=== PATIENT | female | born 2000 | race Two or more races ===

== ENCOUNTER 2022-10-01 11:46 | Emergency (ER) | payer MEDICAID, OTHER ==
[~2022-10-01] VITALS: Ht 160 cm; Wt 54.3 kg
[2022-10-01 12:55] LABS: Basophils # (auto) 0.1 10 ^3/uL (0-0.2); Basophils % (auto) 0.6 % (0.0-2.0); Eosinophils # (auto) 0.1 10 ^3/uL (0-0.8); Eosinophils % (auto) 0.7 % (0.0-7.0); Hematocrit 43.4 % (36.0-46.0); Hemoglobin 14.5 g/dL (12.2-16.2); Lymphocytes # (auto) 2.7 10 ^3/uL (0.4-5.4); Mean Corpuscular Hemoglobin 28.7 pg (28.0-32.0); Mean Corpuscular Hgb Conc. 33.5 g/dL (32.0-36.0); Mean Corpuscular Volume 85.5 fL (80.0-100.0); Monocytes # (auto) 0.6 10 ^3/uL (0-1.3); Monocytes % (auto) 6.4 % (0.0-12.0); Neutrophils # (auto) 6.5 10 ^3/uL (1.6-8.6); Neutrophils % (auto) 65.3 % (37.0-80.0); Red Blood Cells 5.07 10^6/uL (4.0-5.20); Red Cell Distribution Width 12.6 % (11.8-14.3); White Blood Cell 9.9 10^3/uL (4.4-10.8)
[2022-10-01 13:19] LABS: Potassium 4.4 mmol/L (3.5-5.1)
[2022-10-01 13:25] LABS: BUN/Creatinine Ratio 14.5 (10.0-20.0); Bilirubin, Total 0.5 mg/dL (0.2-1.0); Calcium 9.3 mg/dL (8.5-10.1); Total Protein 7.4 g/dL (6.4-8.2)
[2022-10-01 13:44] LABS: Urine Bacteria NONE SEEN /hpf (None Seen); Urine Blood TRACE /uL (Negative); Urine Mucus FEW (None Seen); Urine Specific Gravity 1.036 (1.001-1.035); Urine WBC 7 /hpf (0 - 5)
[2022-10-01 14:02] LABS: Alcohol, Urine < 3.0 mg/dL (0-10); Amphetamine Screen, Urine POSITIVE (NEGATIVE); Barbiturate Scree,Urine NEGATIVE (NEGATIVE); Benzodiazephine Screen, Urine NEGATIVE (NEGATIVE); Cannabinoid Screen, Urine POSITIVE (NEGATIVE); Cocaine Screen, Urine NEGATIVE (NEGATIVE); Phencyclidine Screen, Urine NEGATIVE (NEGATIVE)
[2022-10-01 14:09] LABS: Opiate Scree,Urine NEGATIVE (NEGATIVE)
[2022-10-01 15:30] VITALS: BP 137/74
== END 2022-10-01 15:33 | disposition home or self-care (01) ==
LOC: ER 11:46
DX: O20.8 Other hemorrhage in early pregnancy (principal); F15.10 Other stimulant abuse, uncomplicated; F12.10 Cannabis abuse, uncomplicated; R10.2 Pelvic and perineal pain; Z3A.01 Less than 8 weeks gestation of pregnancy; Z79.899 Other long term (current) drug therapy
CPT/HCPCS: 36415; 76801; 76817; 80053; 80307; 81001; 84702; 85025; 86850; 86900; 86901

== ENCOUNTER 2024-05-03 05:35 | Inpatient (IN) | payer MEDICAID ==
[2024-05-03] VITALS (15 sets, daily range): BP systolic 108–131; BP diastolic 45–69; PULSE 68–86; RESP 15–20; TEMP 98–98.3; O2SAT 97–100
[~2024-05-03] VITALS: Ht 157.5 cm; Wt 68.0 kg
[2024-05-03] MEDS ORDERED: LACTATED RINGER'S 1,000 ML IV ONE (06:00)
[2024-05-03] MEDS ORDERED: ceFAZolin 2 GM/D5W50ml 50 ML IV ONE (06:30)
[2024-05-03 06:48] LABS: Basophils # (auto) 0.1 10 ^3/uL (0-0.2); Eosinophils # (auto) 0 10 ^3/uL (0-0.8); Hemoglobin 12.3 g/dL (12.2-16.2); Mean Corpuscular Hemoglobin 26.8 pg (28.0-32.0); Mean Corpuscular Hgb Conc. 32.7 g/dL (32.0-36.0); Platelet Count (auto) 418 10^3/uL (140-450)
[2024-05-03] MEDS ORDERED: MORPHINE SULF PF 5 MG/10 ML VIAL ONE (06:48)
[2024-05-03 06:51] LABS: Basophils % (auto) 0.9 % (0.0-2.0); Eosinophils % (auto) 0.1 % (0.0-7.0); Hematocrit 37.5 % (36.0-46.0); Lymphocytes % (auto) 12.7 % (10.0-50.0); Monocytes # (auto) 0.8 10 ^3/uL (0-1.3); Monocytes % (auto) 5.1 % (0.0-12.0); Neutrophils # (auto) 12.7 10 ^3/uL (1.6-8.6); Neutrophils % (auto) 81.2 % (37.0-80.0); Nucleated Red Blood Cells % 0.1 %; Red Blood Cells 4.57 10^6/uL (4.0-5.20); Red Cell Distribution Width 13.9 % (11.8-14.3); White Blood Cell 15.6 10^3/uL (4.4-10.8)
[2024-05-03 06:57] LABS: INR 0.94 (0.9-1.15); Partial Thromboplastin Time 24.2 SEC (24.5-34.5)
--- NOTE | 2024-05-03 07:02 | DVHHP2 ---
OB CC & HPI Date Date of Admission: May 03, 2024 Patient Identification: : 5 Para: 1 EDC: May 17, 2024 EGA: 38WKS Chief Complaints: Reason for admission: active labor Indication for : desires repeat Admission Nurse Assessment Rev: No History of Present Complaints PT PRESENTS WITH UCS ,HAS ROM OR VAG BLEEDING.PT HAS NO PNC AND IS DRUG POS Past Medical History Cardiac: No pertinent Hx Pulmonary: No pertinent Hx Central Nervous System: No pertinent Hx GI: No pertinent Hx Hemotology/Oncology: No pertinent Hx Hepatobiliary: No pertinent Hx Psychiatric: No pertinent Hx Musculoskeletal: No pertinent Hx Rheumotologic: No pertinent Hx Infectious Disease: No peritnent Hx ENT: No pertinent Hx Renal/: No pertinent Hx Endocrine: No pertinent Hx Dermatology: No pertinent Hx Past Surgical History: No pertinent Hx OB History OB History Care: None Ultrasounds: No ultrasounds Obstetrical Complications: None Medical Complications: None Allergies: Coded Allergies: NO KNOWN ALLERGIES (Unverified , 10/01/22) Current Medications Current Medications Medications (Trade) Dose Ordered Sig/Linda Route PRN Reason Start Time Stop Time Status Last Admin Lactated Ringer's 1,000 ml @ 125 mls/hr Q8H IV 05/03/24 06:00 Family & Social History Family/Social History Blood Type: Unknown Rubella: unknown RPR/VDRL: Unknown GBS Status: Unknown HBsAG: Unknown Review of Systems Constitutional: No symptom reported Ears, Nose, & Throat: No symptom reported Eyes: No symptom reported Pulmonary/Respiratory: No symptom reported Cardiovascular: No symptom reported Gastrointestinal: No symptom reported Genitourinary: No symptom reported Musculoskeletal: No symptom reported Skin: No symptom reported Psychiatric: No symptom reported Endocrine: No symptom reported Hemotologic/Lymphatic: No symptom reported OB Admission Exam Physical Exam HEENT: TMs Normal, Fontanelles Normal, Nasal Mucosa Normal, Eyes non-injected, Oropharynx Normal, PERRLA, Moist Membranes, EOMI Heart: Rhythm Normal Lungs: Clear Abdomen: Non tender Extremities: Normal Reflexes: Normal Cervical Dilatation: 1cm Effacement: 25% Station: -3 Membranes: Intact Heart Rate: 130's Accelerations: Accelerations Present Decelerations: No Decelerations Short Term Variability: Present Silver Chaser Variability: Average (6-25) Contractions on Admission: < 5 Minutes Apart Intensity: Moderate OB Plan Plan Admitting Diagnosis: IUP AT 38WKS WITH SROM BREECH NO CARE DRUG USE Plan: Section Other Plan: INFORMED CONSENT OBTAINED ,RISK AND COMPL OF CS D/W PT .POSSIB OF BLEEDING INFXN,PE,DVT AND ANESTH COMP D/W PT.PT FULLY UNDERSTANDS WISHES TO PROCEED WITH CS MATT BRANDON DO May 03, 2024 07:02
[2024-05-03] MEDS ORDERED: ePHEDrine SULFATE 50 MG/ML AMP ONE ×2 (07:11→07:36)
[2024-05-03] MEDS ORDERED: LACT. RINGERS/OXYTOCIN 20UNITS 1,000 ML IV ONE (07:15)
[2024-05-03] MEDS: GUM (CHEWING) 1 GUM CHEW CHEW ONE (07:15)
[2024-05-03] MEDS ORDERED: ONDANSETRON HCL 4 MG/2 ML VIAL IV PRN ×2 (07:15→08:15)
[2024-05-03] MEDS ORDERED: MIDAZOLAM HCL 2MG/2ML 2ml VIAL (1mg/ml) ONE (07:21)
[2024-05-03 07:24] LABS: Albumin 4.2 g/dL (3.2-4.8); Anion Gap 10 (5-15); Aspartate Aminotransferase 17 U/L (13-40); BUN/Creatinine Ratio 8.3 (10.0-20.0); Bilirubin, Total 0.5 mg/dL (0.2-1.0); Calcium 9.7 mg/dL (8.7-10.4); Glucose 81 mg/dL (74-106)
[2024-05-03 07:28] LABS: Alanine Aminotransferase < 9 U/L (7-40); Alkaline Phosphatase 268 U/L (46-116); Blood Urea Nitrogen 5 mg/dL (9-23); Carbon Dioxide 20 mmol/L (20-31); Chloride 105 mmol/L (98-107); Potassium 3.6 mmol/L (3.5-5.1); Sodium 135 mmol/L (136-145)
[2024-05-03] MEDS ORDERED: ONDANSETRON HCL 4 MG/2 ML VIAL ONE (07:28)
--- NOTE | 2024-05-03 07:46 | DVHOP2 ---
Operative Report DATE OF OPERATION:05/03/24 PREOPERATIVE DIAGNOSES: [iup at 38wks,previous cs,breech,no care,meth use] POSTOPERATIVE DIAGNOSES: [same,meconium] OPERATION PERFORMED: Repeat Section FINDINGS: [b] infant. Apgars of [8] and [9]. Weight [good] crying tone. [mec] amniotic fluid. Placenta and three-vessel were intact. Normal tubes, ovaries, and uterus.cord ph 7.4 SURGEON: Judi Nance D.O. COLOR EXPERT: coating technician, patricia]. ANESTHESIOLOGIST: Kush villalobos ANESTHESIA: [Duramorph spinal, regional]. COMPLICATIONS: [none]. ESTIMATED BLOOD LOSS: [500] mL. BLOOD PRODUCTS USED: [none]. PROCEDURE IN DETAIL: The patient was taken to the operating room, placed in sitting position, and spinal was placed without difficulty. She was then prepped and draped in a sterile fashion. A low Pfannenstiel incision was made scapel. At this point, it was carried down through the rectus fascia, nicked in the midline, and carried laterally. The rectus muscles were in the midline. Peritoneum was identified and entered with sharp dissection. Vesicouterine peritoneum was taken off the lower uterine segment. A lower uterine transverse incision was made with a scalpel down the chorionic membranes, ruptured with hemostat. was in vertex position. One hand was placed in the lower uterine segment.breech delivery was done Head was essentially delivered spontaneously. Nose and mouth were bulb suctioned. Shoulders and torso were delivered without difficulty. Again, pharynx, nose, and mouth were re-suctioned with vigorous crying tone. Cord was cut. The infant was handed off to the awaiting Respiratory. At this point, umbilical blood sample was taken. Placenta was removed. Uterus was exteriorized, cleared off all clots and debris, irrigated, and closed with a double layer of 0-Vicryl. The vesicouterine peritoneum was incorporated into this closure. We had complete hemostasis. EBL was mL. The instrument, lap, and sponge count was correct x1. The uterus was placed back into the peritoneum. The peritoneal cavity was re-inspected and the lower uterine incision with good hemostasis. We closed the peritoneum with running continuous of 2-0 Vicryl. The Rectus Fascia was closed with 0-PDS, running continuous, looped-0. The skin was closed undermined, irrigated, and close with jana. CONDITION: The patient's and the infant's condition is stable and but guarded. JUDI NANCE DO May 03, 2024 07:46
--- NOTE | 2024-05-03 07:48 | DVH ---
LIMITED OB ULTRASOUND > 14 WKS: HISTORY: rule out acreta, previous no care TECHNIQUE: Multiple real-time grayscale images of the gravid uterus with duplex Doppler color flow an d M-mode spectral analysis. TRANSDUCER: TA FINDINGS: IUP single live fetus at 36 weeks 4 days based on composite averages of the BPD, head circumference, abdominal circumference and femur length Estimated weight 2966 grams heart rate 147 beats per minute CLOVIS 8 cm Cervix was nt seen breech Presentation Grade II fundal Placenta without previa or abruption. IMPRESSION: IUP single live fetus at 36 weeks 4 days AUA corresponding to an ALLY of 05-27-24
[2024-05-03 07:59] LABS: Amphetamine Screen, Urine Pos (NEGATIVE); Barbiturate Scree,Urine Neg (NEGATIVE); Benzodiazephine Screen, Urine Neg (NEGATIVE); Cannabinoid Screen, Urine Pos (NEGATIVE); Cocaine Screen, Urine Neg (NEGATIVE)
[2024-05-03 08:02] LABS: Opiate Scree,Urine Neg (NEGATIVE); Phencyclidine Screen, Urine Neg (NEGATIVE)
[2024-05-03] MEDS ORDERED: HYDROmorphone HCL 2 MG/ML VL/or syr IV PRN ×2 (08:15)
[2024-05-03] MEDS ORDERED: DexAMETHasone SOD PHOS 10MG/1ML VIAL INJ IV PRN (08:15)
[2024-05-03] MEDS ORDERED: NALOXONE HCL 0.4 MG/ML VIAL IV PRN (08:15)
[2024-05-03] MEDS ORDERED: NALBUPHINE HCL 10 MG/1ml INJECTION SUBCUT ONE (08:15)
[2024-05-03] MEDS ORDERED: ACETAMINOPHEN IV 1000 MG/100ML (10MG/ML) IV PRN (08:15)
[2024-05-03] MEDS ORDERED: diphenhdrAMINE HCL 50 MG/1 ML VL IV PRN (08:15)
[2024-05-03] MEDS ORDERED: MEPERIDINE HCL (25 MG/ML) 1ML VIAL IV PRN (08:15)
[2024-05-03] MEDS ORDERED: ONDANSETRON HCL 4 MG/2 ML VIAL IV ONE (08:15)
[2024-05-03] MEDS: ACETAMINOPHEN IV 1000 MG/100ML (10MG/ML) IV PRN (13:54)
[2024-05-03] MEDS: ceFAZolin 1GM/50ML 50 ML IV SCH (15:18)
[2024-05-03 18:38] LABS: Basophils # (auto) 0 10 ^3/uL (0-0.2); Eosinophils # (auto) 0 10 ^3/uL (0-0.8); Eosinophils % (auto) 0.1 % (0.0-7.0); Mean Corpuscular Hemoglobin 26.6 pg (28.0-32.0); Neutrophils # (auto) 13.3 10 ^3/uL (1.6-8.6)
[2024-05-03 18:39] LABS: Basophils % (auto) 0.2 % (0.0-2.0); Hematocrit 33.8 % (36.0-46.0); Lymphocytes # (auto) 1.8 10 ^3/uL (0.4-5.4); Lymphocytes % (auto) 11.2 % (10.0-50.0); Mean Corpuscular Hgb Conc. 32.6 g/dL (32.0-36.0); Mean Corpuscular Volume 81.5 fL (80.0-100.0); Monocytes # (auto) 0.9 10 ^3/uL (0-1.3); Monocytes % (auto) 5.5 % (0.0-12.0); Platelet Count (auto) 350 10^3/uL (140-450); Red Blood Cells 4.15 10^6/uL (4.0-5.20); Red Cell Distribution Width 14.2 % (11.8-14.3)
[2024-05-03] MEDS: KETOROLAC TROMETH 30 MG/ML 1ML VIAL IV PRN (21:57)
[2024-05-03] MEDS: ceFAZolin 1GM/50ML 100 ML IV ONE (23:00)
[2024-05-03] MEDS: LACTATED RINGER'S 1,000 ML IV SCH (23:01)
[2024-05-04] VITALS (12 sets, daily range): BP systolic 96–121; BP diastolic 49–81; PULSE 65–79; RESP 16–20; TEMP 97.7–98.6; O2SAT 96–99
--- NOTE | 2024-05-04 04:37 | DVHPN2 ---
Progress Note Date Seen: May 04, 2024 Subjective S: Lochia minimal. Patient already eating regular diet on her own, same well tolerated. Ambulating well w/o feeling dizzy or lightheaded. Pain relieved with IV analgesics. Passing flatus but no BM yet. Campbell still in place; per RN patient refused to have catheter discontinued last night. Formula feeding infant w/o problem vital signs Vital Sign Date Time Temp Pulse Resp B/P (MAP) Pulse Ox O2 Delivery O2 Flow Rate FiO2 05/04/24 02:15 70 16 97 05/03/24 19:00 Room Air 05/03/24 08:15 111/64 (80) 05/03/24 07:55 98 05/03/24 07:55 97.0 97.0 Total Intake and Output 05/03/24 05/03/24 05/04/24 15:00 23:00 07:00 Output Total 250 ml 3380 ml Balance -250 ml -3380 ml medications Current Medications Medications Dose Ordered Sig/Linda Route Start Time Stop Time Status Last Admin Dose Admin Lactated Ringer's 1,000 ml @ 125 mls/hr Q8H IV 05/03/24 06:00 05/03/24 23:01 125 MLS/HR Ondansetron HCl 4 mg Q4HP PRN IV 05/03/24 07:15 Diphenhydramine HCl 25 mg Q4HP PRN IV 05/03/24 08:15 Ondansetron HCl 4 mg Q4HP PRN IV 05/03/24 08:15 Ketorolac Tromethamine 30 mg Q6HP PRN IV 05/03/24 08:15 05/08/24 08:14 05/03/24 21:57 30 MG Acetaminophen 1,000 mg Q8HPRN PRN IV 05/03/24 13:30 05/04/24 06:01 05/04/24 03:34 1,000 MG laboratory and microbiology Laboratory Tests 05/03/24 18:12 05/03/24 06:11 Test 05/03/24 06:11 Range/Units Serum Glucose 81 74-106 mg/dL Objective O: A&O x3 NAD. Afebrile, VSS Chest: heart and lung sounds normal. Breasts: Nipples intact w/o cracks or soreness Abdomen: normal BS, soft, non-tender, no rebound or guarding, fundus firm @ U- 1, Lower abdominal Incision site with Sylke dressing on, same clean, dry and intact. No edema, erythema or induration Extremities: no edema or tenderness Lochia - minimal Assessment/Plan A/P: 24 yo now Post operative & ppd #1 s/p Repeat Section doing well. Anemia Blood Type: O Rh: Positive Formula feeding Rubella unknown Pain control with medications Bowel regimen: Increase fluid intake and fiber in diet, Laxative PRN Plan discussed with: Patient, Other (Patient's sister) MAYURI MITTAL CNM May 04, 2024 04:36
[2024-05-04 06:59] LABS: Basophils # (auto) 0 10 ^3/uL (0-0.2); Basophils % (auto) 0.3 % (0.0-2.0); Eosinophils # (auto) 0 10 ^3/uL (0-0.8); Monocytes # (auto) 0.9 10 ^3/uL (0-1.3)
[2024-05-04 07:01] LABS: Eosinophils % (auto) 0.2 % (0.0-7.0); Lymphocytes # (auto) 1.8 10 ^3/uL (0.4-5.4); Mean Corpuscular Hemoglobin 26.9 pg (28.0-32.0); Mean Corpuscular Hgb Conc. 33.2 g/dL (32.0-36.0); Monocytes % (auto) 7.4 % (0.0-12.0); Neutrophils % (auto) 77.1 % (37.0-80.0); Platelet Count (auto) 352 10^3/uL (140-450); Red Blood Cells 4.08 10^6/uL (4.0-5.20); Red Cell Distribution Width 14.4 % (11.8-14.3); White Blood Cell 11.7 10^3/uL (4.4-10.8)
[2024-05-04] MEDS: ceFAZolin 1GM/50ML 50 ML IV ONE (07:16)
[2024-05-04] MEDS ORDERED: ceFAZolin 1GM/50ML 50 ML IV ONE (07:17)
[2024-05-04 11:06] LABS: RPR Non Reactive (Non Reactive)
--- NOTE | 2024-05-04 11:40 | DVHINCON2 ---
Date of Service if different f: May 04, 2024 Time of Service: 11:03 Consultation ([facility]) Consulting Physician: SULEMAN CHAVEZ MD Labs Laboratory Tests Test 05/03/24 06:11 05/03/24 06:45 05/04/24 06:24 Prothrombin Time 10.0 sec (9.3-11.8) Prothromb Time International Ratio 0.94 (0.9-1.15) Activated Partial Thromboplast Time 24.2 SEC (24.5-34.5) Sodium Level 135 mmol/L (136-145) Potassium Level 3.6 mmol/L (3.5-5.1) Chloride Level 105 mmol/L (98-107) Carbon Dioxide Level 20 mmol/L (20-31) Anion Gap 10 (5-15) Blood Urea Nitrogen 5 mg/dL (9-23) Creatinine 0.60 mg/dL (0.550-1.02) Glomerular Filtration Rate Calc 128 mL/min (>90) BUN/Creatinine Ratio 8.3 (10.0-20.0) Serum Glucose 81 mg/dL (74-106) Calcium Level 9.7 mg/dL (8.7-10.4) Total Bilirubin 0.5 mg/dL (0.2-1.0) Aspartate Amino Transf (AST/SGOT) 17 U/L (13-40) Alanine Aminotransferase (ALT/SGPT) < 9 U/L (7-40) Alkaline Phosphatase 268 U/L (46-116) Total Protein 7.0 g/dL (5.7-8.2) Albumin 4.2 g/dL (3.2-4.8) Hepatitis B Surface Antigen Negative (Negative) Hepatitis C Antibody Negative (Negative) HIV (1&2) Antibody Negative (Negative) Urine RBC /hpf (0 - 4) Urine WBC /hpf (0 - 5) Urine Squamous Epithelial Cells /hpf (<5) Urine Bacteria /hpf (None Seen) Urine Opiates Screen Neg (NEGATIVE) Urine Fentanyl Screen Neg (NEGATIVE) Urine Barbiturates Screen Neg (NEGATIVE) Urine Phencyclidine Screen Neg (NEGATIVE) Urine Amphetamines Screen Pos (NEGATIVE) Urine Benzodiazepines Screen Neg (NEGATIVE) Urine Cocaine Screen Neg (NEGATIVE) Urine Cannabinoids Screen Pos (NEGATIVE) White Blood Count 11.7 10^3/uL (4.4-10.8) Red Blood Count 4.08 10^6/uL (4.0-5.20) Hemoglobin 11.0 g/dL (12.2-16.2) Hematocrit 33.0 % (36.0-46.0) Mean Corpuscular Volume 81.0 fL (80.0-100.0) Mean Corpuscular Hemoglobin 26.9 pg (28.0-32.0) Mean Corpuscular Hemoglobin Concent 33.2 g/dL (32.0-36.0) Red Cell Distribution Width 14.4 % (11.8-14.3) Platelet Count 352 10^3/uL (140-450) Mean Platelet Volume 8.4 fL (6.9-10.8) Neutrophils (%) (Auto) 77.1 % (37.0-80.0) Lymphocytes (%) (Auto) 15.0 % (10.0-50.0) Monocytes (%) (Auto) 7.4 % (0.0-12.0) Eosinophils (%) (Auto) 0.2 % (0.0-7.0) Basophils (%) (Auto) 0.3 % (0.0-2.0) Neutrophils # (Auto) 9.0 10 ^3/uL (1.6-8.6) Lymphocytes # (Auto) 1.8 10 ^3/uL (0.4-5.4) Monocytes # (Auto) 0.9 10 ^3/uL (0-1.3) Eosinophils # (Auto) 0 10 ^3/uL (0-0.8) Basophils # (Auto) 0 10 ^3/uL (0-0.2) Nucleated Red Blood Cells 0.0 % Appearance: Stated age Psychomotor activity: WNL Behavioral: Cooperative Eye contact: Appropriate Speech: WNL Affect: Appropriate, Mood Congruent Mood: Euthymic Thought processes: Linear/Goal-directed Thought content: WNL Suicidal ideations: Absent Homicidal ideations: Absent Orientation: Person, Place, Time, Situation Memory intact: Recent Intellect: Average Abstractability: WNL Concentration: Adequate Attention: Adequate Judgement: WNL Insight: Good Vitals Vital Signs Date Time Temp Pulse Resp B/P (MAP) Pulse Ox O2 Delivery O2 Flow Rate FiO2 05/04/24 07:30 Room Air 05/04/24 07:30 77 18 97 05/04/24 03:00 98.5 98.5 05/03/24 08:15 111/64 (80) 05/03/24 07:55 98 Current medications Current Medications Medications Dose Ordered Sig/Linda Route Start Time Stop Time Status Last Admin Dose Admin Lactated Ringer's 1,000 ml @ 125 mls/hr Q8H IV 05/03/24 06:00 05/03/24 23:01 125 MLS/HR Ondansetron HCl 4 mg Q4HP PRN IV 05/03/24 07:15 Diphenhydramine HCl 25 mg Q4HP PRN IV 05/03/24 08:15 Ondansetron HCl 4 mg Q4HP PRN IV 05/03/24 08:15 Ketorolac Tromethamine 30 mg Q6HP PRN IV 05/03/24 08:15 05/08/24 08:14 05/04/24 07:37 30 MG Treatment plan discussed: With staff Medication adjusted: Yes Labs ordered: No Psychotherapy provided: No Type: Voluntary History of Present Illness Reason for Consult : psychiatric evaluation for auditory hallucinations The patient was seen and evaluated at [facility] via telepsychiatry platform. 24 yr old female referred for evaluation after scoring 14 on EPDS following her second delivery of son via C Section. She reported that she has a good mood. She denied having suicidal ideation, plan or intent. She reported feeling grateful for having her son and wants to be better for him. She stated she had been on Latuda in the past and it had been helpful. She noted that she has been diagnosed with bipolar depression when she was in half-way and had been on Latuda in the past which she said was very helpful for reducing her anxiety and depression. She noted she had not followed up with an outpatient psychiatrist after she was discharged from half-way. She currently has MediCal and would like to get established with an outpatient MH provider. She also noted that she wants to stop her substance use so that she can be a better mother. She denied having HI/AVH. She reported that she doesn't plan to breastfeed her child. Past Psychiatric History : Diagnosed with ADHD, ODD, bipolar as teenager. A co uple hospitalization as teenager. Had been on Latuda and Trazodone in 2019. Past Medical History: none Current Medications: none. NKDA Substance use: Alcohol-occasional. Occasional MJ use in past, but stated she wants to get off MJ. Meth-had used in the past. Denied other substance use. Social History : Lives in apartment with sister and infant and her sister's two kids in [place]. Receives [facility] and WIC. Unemployed. 11th grade education. Incarcerated for [employer] police in 2019. Diagnosis: UNSPECIFIED BIPOLAR DISORDER Formulation: This 24 yr old female appears to suffer from bipolar disorder with some depression and anxiety. She may benefit from starting Latuda to help with mood stabilization and anxiety. She does not warrant inpatient hospitalization. Plan: 1. Safety. The patient is a low risk for self harm and may be managed as an outpatient. 2. Legal-Voluntary. 3. Medication: Recommend starting the following and discharging with a thirty day supply and two refills of: Latuda (Lurasidone) 40mg with dinner 4. Follow up with outpatient mental health for medication management and therapy. 5. Case discussed with JOHN Galloway Assessment/Diagnosis/Plan Reviewed: Labs, Medications, Previous Orders SULEMAN CHAVEZ MD May 04, 2024 11:40
[2024-05-04 12:06] LABS: Rubella Antibodies, IgG 1.24 index (Immune >0.99)
--- NOTE | 2024-05-04 12:58 | POSTOP ---
Post-Operative Note Post-Operative Note Preop Diagnosis iup at 38wks with breech in labor,no pnc,drug use Postop Diagnosis: same,mec Operation performed rcs Specimen baby boy,apgars 8-9,breech Anesthesia: Regional Anesthesiologist: tiara Blood Loss(fluid mgmt) 500ml Surgeon Matt Nance Rough Rounder jada Implant na Complications & Mgmt none Date 05/04/24 Time 12:54 MATT NANCE DO May 04, 2024 12:58
[2024-05-04] MEDS ORDERED: IBUP-1456 PO (13:00)
[2024-05-04] MEDS ORDERED: HYDR-4072 PO (13:00)
[2024-05-04] MEDS ORDERED: DOCU-94 PO (13:00)
[2024-05-04] MEDS: IBUPROFEN 800 MG TAB PO PRN (13:12)
[2024-05-04] MEDS: SIMETHICONE 80 MG CHEWABLE TABLET PO SCH (20:48)
[2024-05-04] MEDS: FERROUS SULFATE 325mg EC TAB PO SCH (21:49)
[2024-05-04] MEDS: HYDROcodone-ACET 5/325MG TAB PO PRN (22:54)
[2024-05-04 23:06] LABS: Chlamydia Trachomatis, NAA Negative (Negative); Neisseria gonorrhoeae, NAA Negative (Negative)
[2024-05-05 03:00] VITALS: BP 118/71; PULSE 74; RESP 18; TEMP 98.4; O2SAT 98
--- NOTE | 2024-05-05 06:58 | DVHPN2 ---
Chief Complaints Patient reports: No new complaints Nursing reports: No new complaints Objective Vitals Vital Signs Date Time Temp Pulse Resp B/P (MAP) Pulse Ox O2 Delivery O2 Flow Rate FiO2 05/05/24 03:00 98.4 74 18 118/71 (87) 98 98.4 05/04/24 18:43 Room Air 05/03/24 07:55 98 Medications Current Medications Medications (Trade) Dose Ordered Sig/Linda Route PRN Reason Start Time Stop Time Status Last Admin Acetaminophen/ Hydrocodone Bitart (Honaker 5/325MG Tab) 2 tab Q4HPRN PRN PO SEVERE PAIN (7-10 PAIN SCALE) 05/04/24 22:45 05/05/24 05:00 Dimethicone (Mylicon Tab) 80 mg QID PO 05/04/24 18:00 05/04/24 21:49 Ferrous Sulfate 325 mg Q12HR PO 05/04/24 22:00 05/04/24 21:49 Ibuprofen (Motrin Tablet) 800 mg Q8HP PRN PO BREAKTHROUGH PAIN 05/04/24 12:30 05/04/24 20:48 General: Normal Lungs: Normal Cardiovascular: Normal Abdominal: Soft Extremities: Normal Studies Laboratory Tests 05/04/24 06:24 05/03/24 06:11 Test 05/03/24 06:11 Range/Units Serum Glucose 81 74-106 mg/dL Ass/Plan Assessment S/P RCS Plan DC [facility] FU IN ElianaMATT MONTEJO May 05, 2024 06:58
--- NOTE | 2024-05-05 06:59 | DVHDS2 ---
Obstetrics Discharge Summary Obstetrics Discharge Summary Date of Admission: May 03, 2024 Date of Discharge: May 05, 2024 Reason For Admission: Onset of Labor, Section (Repeat) Procedures: NST Intrapartum Procedures: (Low Cervical Transverse) Procedures: None Operative Complicat: None Discharge Diagnosis: Term -Delivered Discharge Information: Activity (Other), Diet, Medications (Name:), Instructions (Routine), Discharge to (Home), Discarge date (05-05-24) MATT BRANDON DO May 05, 2024 06:59
[2024-05-05 07:00] VITALS: BP 107/63; PULSE 70; RESP 18; TEMP 97.5; O2SAT 98
[2024-05-05 11:15] VITALS: BP 107/68; PULSE 78; RESP 18; TEMP 98; O2SAT 97
[2024-05-06 13:06] LABS: Treponema Pallidum Ab LC Non Reactive (Non Reactive)
== END 2024-05-05 11:15 | disposition home or self-care (01) | DRG 540 ==
LOC: LDRP 05:35 → OBSVTOIN 05:45 → LDRP 13:23
PROVIDERS: ADMIT Obstetrics & Gynecology; ATTEND Obstetrics & Gynecology
PROC: 10D00Z1 Extraction of Products of Conception, Low, Open Approach (ICD-10-PCS; principal; 2024-05-03 06:59)
DX: O32.1XX0 Maternal care for breech presentation, not applicable or unspecified (principal); O99.324 Drug use complicating childbirth; O34.211 Maternal care for low transverse scar from previous cesarean delivery; O99.344 Other mental disorders complicating childbirth; O77.0 Labor and delivery complicated by meconium in amniotic fluid; O90.81 Anemia of the puerperium; F31.9 Bipolar disorder, unspecified; F90.9 Attention-deficit hyperactivity disorder, unspecified type; F41.9 Anxiety disorder, unspecified; Z3A.38 38 weeks gestation of pregnancy; Z37.0 Single live birth
CPT/HCPCS: 36415; 59025; 76805; 80053; 80307; 81002; 85025; 85610; 85730; 86592; 86703; 86762; 86780; 86803; 86850; 86900; 86901; 87340; 94760; 96360; 96361; 96365; 96366; 96374; G0378; J0131; J1885; J2250; J2405

== ENCOUNTER 2025-04-08 08:30 | Inpatient (IN) | payer MEDICAID ==
[~2025-04-08] VITALS: Ht 160 cm; Wt 60.7 kg
[~2025-04-08 08:30] MED LIST: DOCU-94 PO; HYDR-4072 PO; IBUP-1456 PO
--- NOTE | 2025-04-08 08:52 | ED.PDOC ---
General HPI Comments 25-year-old female presents here with right flank pain that began 4 days ago. Patient is currently 22 weeks . Due August 12. Does not know her last menstrual period. She is currently a . Patient states that she has a history of pyelonephritis in the past and feels it is similar. She states that is how she found out she was . Denies any nausea vomiting diarrhea. Does report abdominal pain. She states she has not felt the baby move but has not felt the baby move at all during the . Reports temperature this morning fever but does not know how high it was as she did not measure it. Denies any recent cough cold runny nose. Denies any dysuria. Chief Complaint: Flank Pain Time Seen by MD: 08:42 Primary Care Provider: UNKNOWN Allergies: Coded Allergies: NO KNOWN ALLERGIES (Unverified , 10/01/22) Home Meds Active Scripts Ibuprofen (Ibuprofen) 800 Mg Tab, 800 MG PO TID PRN for 5 Days, #15 TAB Prov:MATT BRANDON DO 05/04/24 Hydrocodone-Acetaminophen (Hydrocodone/Acetaminophen 10-325 mg) 1 Tab Tab, 1 TAB PO Q6HPRN PRN for 3 Days, #12 TAB Prov:MATT BRANDON DO 05/04/24 Docusate Sodium (Colace) 100 Mg Cap, 1 CAP PO BID, #60 CAP 2 Refills Prov:MATT BRANDON DO 05/04/24 Mode of Arrival: Wheelchair Past Medical History PAST MEDICAL HISTORY: Anxiety Surgical History: DIGITAL MEDIA DIRECTOR History: Spontaneous Family History Family History: Reviewed,noncontributory to illness Social History Smoker: Non-Smoker Alcohol: Denies ETOH Use Drugs: Marijuana, Methamphetamine Lives In: Home All Other Systems: Reviewed and Negative Physical Exam General Appearance: Moderate Distress HEENT: Normal ENT Inspection, Pharynx Normal, TMs Normal Neck: Full Range of Motion, Non-Tender, Normal, Normal Inspection Respiratory: Chest Non-Tender, Lungs Clear, No Accessory Muscle Use, No Respiratory Distress, Normal Breath Sounds Cardiovascular: No Edema, No JVD, No Murmur, No Gallop, Normal Peripheral Pulses, Regular Rate/Rhythm Breast Exam: Deferred Gastrointestinal: Other (Gravid uterus 4 in above the umbilicus. Diffuse lower abdominal tenderness to palpation. Positive right CVA tenderness to palpation) Genitalia: Deferred Pelvic: Deferred Rectal: Deferred Extremities: No calf tenderness, Normal capillary refill, Normal inspection, Normal range of motion, Non-tender, No pedal edema Musculoskeletal : Apperance: Normal Neurologic: Alert, chiropractor assistant II-XII nml as Tested, No Motor Deficits, Normal Affect, Normal Mood, No Sensory Deficits Cerebellar Function: Normal Reflexes: Normal Skin: Dry, Normal Color, Warm Lymphatic: No Adenopathy Was a procedure done? Was a procedure done?: No Differential Diagnosis Kidney stone (Female): , Urinary obstruction, Urolithiasis Kidney stone (Male): N/A Penile/Scrotal: N/A Urinary Problem (Male): N/A Urinary Problem (Female): Intrauterine , Pyelonephritis, UTI X-Ray, Labs, Meds, VS Vital Signs Date Time Temp Pulse Resp B/P (MAP) Pulse Ox O2 Delivery O2 Flow Rate FiO2 04/08/25 08:36 98.0 106 18 121/93 96 98.0 I was asked to see the patient in triage. Patient presents here with a right flank pain. Concern for possible pyelonephritis. Patient is currently 22 weeks . At this time patient has not been able to feel the baby move at all during this . Given she is currently 22 weeks with the abdominal complaint, she has been sent to L&D. Patient is currently medically cleared from the ER. Time of 1ST Reevaluation: 08:51 Reevaluation 1ST: Unchanged Patient Education/Counseling: Diagnosis, Treatment Family Education/Counseling: No Family Present SEPSIS Sepsis Screen Date sepsis recognized/suspect: Apr 08, 2025 Time Sepsis recognized/suspect: 0839 Recent Procedure: No On Antibiotic Therapy: No Respiratory Rate >20: No Heart Rate >90: Yes Temp<36 C (96.8 F) or >38.3 C: No SBP <90 or MAP <65 mmHG: No New Acute Mental Status Change: No Is the patient on CPAP, BIPAP,: No Vital Signs Date Time Temp Pulse Resp B/P (MAP) Pulse Ox O2 Delivery O2 Flow Rate FiO2 04/08/25 08:36 98.0 106 18 121/93 96 98.0 Departure 1 Departure Time of Disposition: 08:51 Impression: Primary Impression: Flank pain, right side Disposition: 09 ADMITTED INPATIENT Condition: Fair Critical Care Note Critical Care Time?: No Stability Stability form required: No Heart Score Heart Score: Heart Score Response (Comments) Value History N/A 0 EKG N/A 0 Age N/A 0 Risk Factors N/A 0 Troponin N/A 0 Total 0 GERRY ANDRADE MD Apr 08, 2025 08:52
[2025-04-08 10:23] LABS: Hematocrit 38.1 % (36.0-46.0); Hemoglobin 12.5 g/dL (12.2-16.2); Mean Corpuscular Hemoglobin 27.1 pg (28.0-32.0); Mean Corpuscular Volume 82.4 fL (80.0-100.0); Nucleated Red Blood Cells % 0.0 %
[2025-04-08 10:40] LABS: Alanine Aminotransferase 16 U/L (7-40); Albumin 3.7 g/dL (3.2-4.8); Anion Gap 9 (5-15); Carbon Dioxide 26 mmol/L (20-31); Chloride 102 mmol/L (98-107); Glucose 83 mg/dL (74-106); Potassium 3.9 mmol/L (3.5-5.1); Sodium 137 mmol/L (136-145); Total Protein 6.7 g/dL (5.7-8.2)
[2025-04-08 10:44] LABS: Alkaline Phosphatase 145 U/L (46-116); BUN/Creatinine Ratio 9.8 (10.0-20.0); Bilirubin, Total 0.3 mg/dL (0.2-1.0); Blood Urea Nitrogen < 5 mg/dL (9-23); Calcium 8.7 mg/dL (8.7-10.4)
[2025-04-08 10:47] LABS: Urine Protein, UAD 2+ (Negative)
[2025-04-08 10:59] LABS: Amphetamine Screen, Urine Pos (NEGATIVE); Barbiturate Scree,Urine Neg (NEGATIVE); Benzodiazephine Screen, Urine Neg (NEGATIVE); Cannabinoid Screen, Urine Pos (NEGATIVE); Cocaine Screen, Urine Neg (NEGATIVE); Opiate Scree,Urine Neg (NEGATIVE); Phencyclidine Screen, Urine Neg (NEGATIVE)
[2025-04-08] MEDS: LACTATED RINGER'S 1,000 ML IV SCH ×2 (11:23→11:30)
--- NOTE | 2025-04-08 11:26 | DVHHP2 ---
OB CC & HPI Date Date of Admission: Apr 08, 2025 Patient Identification: : 6 Para: 2 EGA: 22 weeks Chief Complaints: Reason for admission: other (Acute pyelonephritis, right side) History of Present Complaints 25y approx 22 wk EGA based on stated EDC Patient w/ no PNL care Presented to ER w/ acute right sided flank pain and dysuria Hx of pyelonephritis in the past Denies hx of kidney stones. No N/V or fever reported Fetus active, no bleeding or contractions Hx of C/Section x 2 and SABx3 Hx of THC and Amphetamine use, last used 2 days ago. Past Medical History Cardiac: No pertinent Hx Pulmonary: No pertinent Hx Central Nervous System: No pertinent Hx GI: No pertinent Hx Hemotology/Oncology: No pertinent Hx Hepatobiliary: No pertinent Hx Psychiatric: No pertinent Hx Musculoskeletal: No pertinent Hx Rheumotologic: No pertinent Hx Infectious Disease: No peritnent Hx ENT: No pertinent Hx Renal/: No pertinent Hx Endocrine: No pertinent Hx Dermatology: No pertinent Hx Others Anxiety + Past Surgical History: (x2) OB History OB History Care: None Ultrasounds: No ultrasounds Medical Complications: Other (Drug use) Allergies: Coded Allergies: NO KNOWN ALLERGIES (Unverified , 10/01/22) Home Meds Active Scripts Ibuprofen (Ibuprofen) 800 Mg Tab, 800 MG PO TID PRN for 5 Days, #15 TAB Prov:MATT BRANDON DO 05/04/24 Hydrocodone-Acetaminophen (Hydrocodone/Acetaminophen 10-325 mg) 1 Tab Tab, 1 TAB PO Q6HPRN PRN for 3 Days, #12 TAB Prov:MATT BRANDON DO 05/04/24 Docusate Sodium (Colace) 100 Mg Cap, 1 CAP PO BID, #60 CAP 2 Refills Prov:MATT BRANDON DO 05/04/24 Current Medications Current Medications Medications (Trade) Dose Ordered Sig/Linda Route PRN Reason Start Time Stop Time Status Last Admin Acetaminophen/ Hydrocodone Bitart ([place] 5/325MG Tab) 2 tab Q6HPRN PRN PO MODERATE PAIN (4-6 PAIN SCALE) 04/08/25 10:00 Morphine Sulfate 4 mg Q3HPRN PRN IV SEVERE PAIN (7-10 PAIN SCALE) 04/08/25 10:00 Ceftriaxone Sodium 50 ml @ 100 mls/hr DAILY@09 IV 04/09/25 09:00 Lactated Ringer's 1,000 ml @ 125 mls/hr Q8H IV 04/08/25 10:00 Review of Systems Constitutional: No symptom reported Ears, Nose, & Throat: No symptom reported Eyes: No symptom reported Pulmonary/Respiratory: No symptom reported Cardiovascular: No symptom reported Gastrointestinal: No symptom reported Genitourinary: Dysuria, Pain Musculoskeletal: No symptom reported Skin: No symptom reported Psychiatric: No symptom reported Endocrine: No symptom reported Hemotologic/Lymphatic: No symptom reported OB Admission Exam Physical Exam Vitals: Vital Signs Date Time Temp Pulse Resp B/P (MAP) Pulse Ox O2 Delivery O2 Flow Rate FiO2 04/08/25 08:36 98.0 106 18 121/93 96 98.0 HEENT: NCAT Heart: Rhythm Normal Lungs: Clear Abdomen: Gravid Extremities: Normal Reflexes: Normal Pelvic Exam: Deferred Heart Rate: 150's Contractions on Admission: None OB Plan Plan Admitting Diagnosis: IUP 22 wk, Pyelonephritis Other Plan: Admit to antepartum for IV fluids, pain control and IV Rocephin Await urine culture and sensitivity, may transition to PO antibiotics once improved Complete OB Ultrasound , PNL labs ordered Renal US ordered r/o obstruction/ nephrolithiasis Visit Coding OBGYN Date of Service: Apr 08, 2025 Billing Provider: GOLDIE LUNA DO [employer] Common Visit Codes: [id number] INP/OBS CARE (HIGH) GOLDIE LUNA DO Apr 08, 2025 11:26
--- NOTE | 2025-04-08 11:37 | DVH ---
INDICATION: Right sided flank pain TECHNIQUE: Multiple real-time sonographic images of the kidneys and bladder were obtained. COMPARISON: None FINDINGS: The right kidney measures 12.8 cm in length, which is normal in size. There is normal echogenicity of the right kidney. Mild hydronephrosis. The left kidney measures 11.7 cm in length, which is normal in size. There is normal echogenicity of the left kidney. No hydronephrosis. No large intraluminal masses are seen in the bladder. Prior to voiding the bladder volume measures volume 39.9 cc. Bilateral ureteral jets are not visualized. IMPRESSION: 1. Mild right hydronephrosis.
--- NOTE | 2025-04-08 11:41 | DVH ---
EXAM: US OB ULTRASOUND COMP GTR 14 WKS HISTORY: right sided flank pain TECHNIQUE: Multiple real-time grayscale images of the gravid uterus with duplex Doppler color flow and M-mode spectral analysis. COMPARISON: US OB ULTRASOUND COMP GTR 14 WKS on DOS: 05/03/24, US OB ULTRASOUND COMP LESS 14WKS on DOS: 10/01/22 FINDINGS: IUP single live fetus at 21 weeks and 5 days average ultrasound age (AUA) based on composite averages of the BPD, head circumference, abdominal circumference and femur length MEASUREMENTS: BPD: 5.2 cm GA: 22w 0d HC: 19.8 cm GA: 22w 1d AC: 16.2 cm GA: 21w 2d FL: 3.5 cm GA: 21w 3d Estimated weight 424 grams; 30th percentile heart rate 153 beats per minute CLOVIS is subjectively within normal limits cm, MVP 5.4 ANATOMIC SURVEY: 4-chamber heart, stomach, kidneys, bladder are grossly within normal limits. Cephalic Presentation Grade 1, anterior placenta without previa or abruption Cervix is closed measuring 3.2 cm IMPRESSION: IUP single live fetus at 21 weeks and 5 days AUA corresponding to an ALLY of 08/14/2025. No abnormality detected.
[2025-04-08] MEDS: HYDROcodone-ACET 5/325MG TAB PO PRN (14:10)
[2025-04-08] MEDS: ERTAPENEM SOD INJ 1 GM in SODIUM CHL 0.9% 50 ML IV SCH (14:58)
--- NOTE | 2025-04-08 15:11 | DVHINCON2 ---
Date of service: Apr 08, [address] Mejia Reason for Consultation medicine consult History of Present Illness 25-year-old female, 6 para 2, currently 22 weeks , with history of and three prior spontaneous abortions (SABg x3), presents with right flank pain radiating to the back for the past 34 days. Patient reports that she was recently diagnosed with a urinary tract infection (UTI) at [facility] in January 2025, which presented with similar symptoms. She attempted to manage her current symptoms at home by resting and working through the pain, but the pain became so severe that she could not walk and came to the ED for evaluation. She reports subjective fevers and severe pain with movement. On further questioning, she admits to using marijuana 2 days ago to manage her pain and also reports recent methamphetamine use. Urine drug screen is positive for both substances. She denies current alcohol use. UA is positive for nitrates and bacteria. Labs show a WBC of 13.5; CMP is unremarkable. Patient is currently stable but continues to have flank pain. OB consultation was requested to evaluate well-being. Given history of UTI and current symptoms, she will be admitted for further monitoring, IV antibiotics, and OB evaluation. heart tones is positive and will be assessed on the floor. She is a current smoker. pt will be admitted to medicine Past Medical History pyelonephritis Past Surgical History c sec x2 Family History Reviewed, non-contributory to the management of this case. Social History pt with uds with meth, marijuana Allergies: Coded Allergies: NO KNOWN ALLERGIES (Unverified , 10/01/22) Home Meds Active Scripts Ibuprofen (Ibuprofen) 800 Mg Tab, 800 MG PO TID PRN for 5 Days, #15 TAB Prov:MATT BRANDON DO 05/04/24 Hydrocodone-Acetaminophen (Hydrocodone/Acetaminophen 10-325 mg) 1 Tab Tab, 1 TAB PO Q6HPRN PRN for 3 Days, #12 TAB Prov:MATT BRANDON DO 05/04/24 Docusate Sodium (Colace) 100 Mg Cap, 1 CAP PO BID, #60 CAP 2 Refills Prov:MATT BRANDON DO 05/04/24 Current Medications Current Medications Medications (Trade) Dose Ordered Sig/Linda Route PRN Reason Start Time Stop Time Status Last Admin Acetaminophen/ Hydrocodone Bitart ([place] 5/325MG Tab) 2 tab Q6HPRN PRN PO MODERATE PAIN (4-6 PAIN SCALE) 04/08/25 10:00 04/08/25 14:10 Morphine Sulfate 4 mg Q3HPRN PRN IV SEVERE PAIN (7-10 PAIN SCALE) 04/08/25 10:00 Ceftriaxone Sodium 50 ml @ 100 mls/hr DAILY@09 IV 04/09/25 09:00 04/08/25 11:34 DC Lactated Ringer's 1,000 ml @ 125 mls/hr Q8H IV 04/08/25 10:00 04/08/25 11:32 DC 04/08/25 11:23 Lactated Ringer's 1,000 ml @ 125 mls/hr Q8H IV 04/08/25 11:30 Ertapenem 1 gm/ Sodium Chloride 50 ml @ 100 mls/hr DAILY IV 04/08/25 14:00 04/23/25 13:59 Review of Systems does c/o right flank pain and back, Vital Signs Vital Signs Date Time Temp Pulse Resp B/P (MAP) Pulse Ox O2 Delivery O2 Flow Rate FiO2 04/08/25 08:36 98.0 106 18 121/93 96 98.0 Labs/Diagnostic Data I reviewed labs, imaging CT scan abdomen pelvis, EKG and all diagnostic studies on this patient from ED records and the medical chart Labs Test 04/08/25 11:28 04/08/25 10:33 04/08/25 10:06 04/08/25 09:50 Range/Units Treponema pallidum Antibody Non-reactive Negative Hepatitis B Surface Antigen Negative Negative Hepatitis C Antibody Negative Negative Rubella Antibody Positive Urine Color Dark yellow Yellow Urine Clarity Turbid H Clear Urine pH 6.0 5.0-9.0 Urine Specific [place] 1.012 1.001-1.035 Urine Protein 2+ H Negative Urine Ketones Negative Negative Urine Blood Negative Negative /uL Urine Nitrite 2+ H Negative Urine Bilirubin Negative Negative Urine Urobilinogen Normal Negative mg/dL Urine Leukocyte Esterase 3+ Negative /uL Urine RBC 12 0 - 4 /hpf Urine Microscopic WBC 237 H 0-5 /HPF Urine Squamous Epithelial Cells Mod <5 /hpf Urine Bacteria Many H None Seen /hpf Urine Mucus Few None Seen Urine Glucose Normal Normal mg/dL Urine Opiates Screen Neg NEGATIVE Urine Fentanyl Screen Neg NEGATIVE Urine Barbiturates Screen Neg NEGATIVE Urine Phencyclidine Screen Neg NEGATIVE Urine Amphetamines Screen Pos NEGATIVE Urine Benzodiazepines Screen Neg NEGATIVE Urine Cocaine Screen Neg NEGATIVE Urine Cannabinoids Screen Pos NEGATIVE White Blood Count 13.5 H 4.4-10.8 10^3/uL Red Blood Count 4.62 4.0-5.20 10^6/uL Hemoglobin 12.5 12.2-16.2 g/dL Hematocrit 38.1 36.0-46.0 % Mean Corpuscular Volume 82.4 80.0-100.0 fL Mean Corpuscular Hemoglobin 27.1 L 28.0-32.0 pg Mean Corpuscular Hemoglobin Concent 32.9 32.0-36.0 g/dL Red Cell Distribution Width 12.4 11.8-14.3 % Platelet Count 380 140-450 10^3/uL Mean Platelet Volume 7.6 6.9-10.8 fL Neutrophils (%) (Auto) 77.0 37.0-80.0 % Lymphocytes (%) (Auto) 11.1 10.0-50.0 % Monocytes (%) (Auto) 11.7 0.0-12.0 % Eosinophils (%) (Auto) 0.1 0.0-7.0 % Basophils (%) (Auto) 0.1 0.0-2.0 % Neutrophils # (Auto) 10.4 H 1.6-8.6 10 ^3/uL Lymphocytes # (Auto) 1.5 0.4-5.4 10 ^3/uL Monocytes # (Auto) 1.6 H 0-1.3 10 ^3/uL Eosinophils # (Auto) 0 0-0.8 10 ^3/uL Basophils # (Auto) 0 0-0.2 10 ^3/uL Nucleated Red Blood Cells 0.0 % Sodium Level 137 136-145 mmol/L Potassium Level 3.9 3.5-5.1 mmol/L Chloride Level 102 98-107 mmol/L Carbon Dioxide Level 26 20-31 mmol/L Anion Gap 9 5-15 Blood Urea Nitrogen < 5 L 9-23 mg/dL Creatinine 0.51 L 0.550-1.02 mg/dL Glomerular Filtration Rate Calc 133 >90 mL/min BUN/Creatinine Ratio 9.8 L 10.0-20.0 Serum Glucose 83 74-106 mg/dL Calcium Level 8.7 8.7-10.4 mg/dL Total Bilirubin 0.3 0.2-1.0 mg/dL Aspartate Amino Transferase (AST) 15 13-40 U/L Alanine Aminotransferase (ALT) 16 7-40 U/L Alkaline Phosphatase 145 H 46-116 U/L Total Protein 6.7 5.7-8.2 g/dL Albumin 3.7 3.2-4.8 g/dL Assessment 25-year-old female at 22 weeks gestation with flank pain, UTI, and positive urine drug screen, admitted for infectious work-up, monitoring, and pain management. , 22 weeks gestation () OB following for heart tones and assessment Monitor for signs of labor Continue vitamins Avoid nephrotoxic agents and adjust medications for acute pyelonephritis/UTI in UA positive for nitrates and bacteria Send urine culture Start empiric IV antibiotics safe for meropenem Monitor response to antibiotics and fever curve acute Right flank pain Likely due to UTI vs ureteral spasm Provide acetaminophen for pain as needed Monitor for hematuria or stone passage Renal ultrasound if no improvement or worsening pain acute leukocytosis cont antibiotics meropenem Recent marijuana and methamphetamine use Urine drug screen positive Access Services Representative on risks to fetus from continued use Offer social work and addiction support services Document refusal if she declines services History of x1, SAB x3 Important for OB to be aware in current Watch closely for labor signs or complications Include in risk documentation tobacco dependence I counseld the patient for 6 min about smoking suggestions did offer nicotine patch but patient declined patch and tobacco education smoking code [id number] chronic problems History of spontaneous abortions History of section Tobacco use Polysubstance use FEN / PPx Fluids: IV fluids Electrolytes: Monitor CMP daily Nutrition: Regular diet as tolerated DVT Prophylaxis: Not indicated in without other risk factors GI Prophylaxis: no hx of gerds or gi bleed Disposition Admit to medical service with OB consult Plan discussed with: Patient [facility] Apr 08, 2025 15:11
[2025-04-08 16:24] VITALS: RESP 18; O2SAT 98
[2025-04-08 17:00] VITALS: BP 117/72; PULSE 59; RESP 17; TEMP 98.6; O2SAT 97
[2025-04-08 20:00] VITALS: PULSE 80; RESP 17; O2SAT 98
[2025-04-08 21:00] VITALS: BP 111/64; PULSE 80; RESP 17; TEMP 98.1; O2SAT 98
[2025-04-08] MEDS: MORPHINE SULFATE 4 MG/ML SYR/VIAL IV PRN (23:01)
[2025-04-09] VITALS (7 sets, daily range): BP systolic 104–122; BP diastolic 65–77; PULSE 73–102; RESP 17–20; TEMP 98.4–100.3; O2SAT 96–99
--- NOTE | 2025-04-09 09:39 | DVHPN2 ---
Chief Complaints Patient reports: Feels better Objective Vitals Vital Signs Date Time Temp Pulse Resp B/P (MAP) Pulse Ox O2 Delivery O2 Flow Rate FiO2 04/09/25 08:00 18 99 Room Air* 0 21 04/09/25 05:00 98.7 73 111/73 (86) 98.7 Medications Current Medications Medications (Trade) Dose Ordered Sig/Linda Route PRN Reason Start Time Stop Time Status Last Admin Acetaminophen/ Hydrocodone Bitart ([place] 5/325MG Tab) 2 tab Q6HPRN PRN PO MODERATE PAIN (4-6 PAIN SCALE) 04/08/25 10:00 04/08/25 14:10 Ertapenem 1 gm/ Sodium Chloride 50 ml @ 100 mls/hr DAILY IV 04/08/25 14:00 04/23/25 13:59 04/08/25 14:58 Lactated Ringer's 1,000 ml @ 125 mls/hr Q8H IV 04/08/25 11:30 04/09/25 03:30 Morphine Sulfate 4 mg Q3HPRN PRN IV SEVERE PAIN (7-10 PAIN SCALE) 04/08/25 10:00 04/08/25 23:01 General: Normal, Well developed, Well nourished Head/Eyes: Normal Lungs: Normal, Normal inspection Cardiovascular: Normal, Regular rate and rhythm Abdominal: Normal, Soft, Normal inspection, Non tender Musculoskeletal: Normal, Full Range of Motion Extremities: No evidence of DVT Skin: Normal inspection, Warm Neurological: Normal, CNII-XII Intact Studies Laboratory Tests 04/08/25 10:06 Test 04/08/25 10:06 Range/Units Serum Glucose 83 74-106 mg/dL Ass/Plan Assessment IUP 22 wk, acute pyelonephritis (recurrent episode this ) - Await urine culture and sens - Continue INVANZ - OB US reviewed, WNL , appropriate anatomy seen for 22 wk - Renal ultrasound WNL, mild right hydronephrosis (physiological), no stones/obstruction seen # Drug use in , amphetamines/ THC+ - Counseled re: risks to self/ fetus Transition to PO antibiotics after 48-72hr of IV Antibiotics after sensitivities are known continue current care GOLDIE LUNA DO Apr 09, 2025 09:39
[2025-04-10 01:00] VITALS: BP 129/76; PULSE 86; RESP 16; TEMP 98.8; O2SAT 94
[2025-04-10 05:00] VITALS: BP 116/79; PULSE 90; RESP 17; TEMP 98.5; O2SAT 98
--- NOTE | 2025-04-10 08:58 | DVHPN2 ---
Subjective Progress Notes Subjective Pain improved in right flank. denies dysuria or fever. Objective PHYSICAL EXAM Physical Exam: Alert, NAD Abd soft, gravid, non tender ext neg ilda sign Vital Signs and I&O Vital Signs Date Time Temp Pulse Resp B/P (MAP) Pulse Ox O2 Delivery O2 Flow Rate FiO2 04/10/25 05:00 98.5 90 17 116/79 (91) 98 98.5 04/09/25 20:00 Room Air* 0 21 Intake and Output 04/10/25 07:00 Intake Total 2660 ml Balance 2660 ml Intake Oral 1660 ml IV Total 1000 ml # Voids 10 Lab results Laboratory Tests Test 04/08/25 09:50 04/08/25 10:06 04/08/25 10:33 04/08/25 11:28 Range/Units Chlamydia trachomatis (ROLA) Pending Neisseria gonorrhoeae (ROLA) Pending White Blood Count 13.5 H 4.4-10.8 10^3/uL Red Blood Count 4.62 4.0-5.20 10^6/uL Hemoglobin 12.5 12.2-16.2 g/dL Hematocrit 38.1 36.0-46.0 % Mean Corpuscular Volume 82.4 80.0-100.0 fL Mean Corpuscular Hemoglobin 27.1 L 28.0-32.0 pg Mean Corpuscular Hemoglobin Concent 32.9 32.0-36.0 g/dL Red Cell Distribution Width 12.4 11.8-14.3 % Platelet Count 380 140-450 10^3/uL Mean Platelet Volume 7.6 6.9-10.8 fL Neutrophils (%) (Auto) 77.0 37.0-80.0 % Lymphocytes (%) (Auto) 11.1 10.0-50.0 % Monocytes (%) (Auto) 11.7 0.0-12.0 % Eosinophils (%) (Auto) 0.1 0.0-7.0 % Basophils (%) (Auto) 0.1 0.0-2.0 % Neutrophils # (Auto) 10.4 H 1.6-8.6 10 ^3/uL Lymphocytes # (Auto) 1.5 0.4-5.4 10 ^3/uL Monocytes # (Auto) 1.6 H 0-1.3 10 ^3/uL Eosinophils # (Auto) 0 0-0.8 10 ^3/uL Basophils # (Auto) 0 0-0.2 10 ^3/uL Nucleated Red Blood Cells 0.0 % Sodium Level 137 136-145 mmol/L Potassium Level 3.9 3.5-5.1 mmol/L Chloride Level 102 98-107 mmol/L Carbon Dioxide Level 26 20-31 mmol/L Anion Gap 9 5-15 Blood Urea Nitrogen < 5 L 9-23 mg/dL Creatinine 0.51 L 0.550-1.02 mg/dL Glomerular Filtration Rate Calc 133 >90 mL/min BUN/Creatinine Ratio 9.8 L 10.0-20.0 Serum Glucose 83 74-106 mg/dL Calcium Level 8.7 8.7-10.4 mg/dL Total Bilirubin 0.3 0.2-1.0 mg/dL Aspartate Amino Transferase (AST) 15 13-40 U/L Alanine Aminotransferase (ALT) 16 7-40 U/L Alkaline Phosphatase 145 H 46-116 U/L Total Protein 6.7 5.7-8.2 g/dL Albumin 3.7 3.2-4.8 g/dL Urine Color Dark yellow Yellow Urine Clarity Turbid H Clear Urine pH 6.0 5.0-9.0 Urine Specific [place] 1.012 1.001-1.035 Urine Protein 2+ H Negative Urine Ketones Negative Negative Urine Blood Negative Negative /uL Urine Nitrite 2+ H Negative Urine Bilirubin Negative Negative Urine Urobilinogen Normal Negative mg/dL Urine Leukocyte Esterase 3+ Negative /uL Urine RBC 12 0 - 4 /hpf Urine Microscopic WBC 237 H 0-5 /HPF Urine Squamous Epithelial Cells Mod <5 /hpf Urine Bacteria Many H None Seen /hpf Urine Mucus Few None Seen Urine Glucose Normal Normal mg/dL Urine Opiates Screen Neg NEGATIVE Urine Fentanyl Screen Neg NEGATIVE Urine Barbiturates Screen Neg NEGATIVE Urine Phencyclidine Screen Neg NEGATIVE Urine Amphetamines Screen Pos NEGATIVE Urine Benzodiazepines Screen Neg NEGATIVE Urine Cocaine Screen Neg NEGATIVE Urine Cannabinoids Screen Pos NEGATIVE Treponema pallidum Antibody Non-reactive Negative Hepatitis B Surface Antigen Negative Negative Hepatitis C Antibody Negative Negative HIV (1&2) Antibody Negative Negative Rubella Antibody Positive Assessment and Plan ASSESSMENT AND PLAN Assessment and Plan IUP 22+1 wk complicated UTI/ Acute Rt sided Pyelonephritis - Gram neg rods, pending ID and sens. - Continue INVANZ - Can likely transition to PO antibiotics and d/c home once sensitivities available My orders: Orders - GOLDIE LUNA DO Place In Outptient Observation (04/08/25 08:55) Obtain Clean Catch Urine (04/08/25 09:14) Position Patient (04/08/25 09:14) Obtain Baseline Fht (04/08/25 09:14) Vs Antepartum (04/08/25 09:14) Nonstress Test (04/08/25 09:14) Hydrocodone-Acet 5/325mg Tab ([place] (04/08/25 10:00) Morphine Sulfate Injection (04/08/25 10:00) Ob Ultrasound Comp Gtr 14 Wks (04/08/25 09:50) Kidney (04/08/25 09:50) Urine Bacterial Culture (04/08/25 09:50) Admit (04/08/25 11:16) Vital Signs .PER UNIT PROTOCOL (04/08/25 11:16) Bedrest With Bathroom Privileg (04/08/25 11:16) Lactated Ringer's (04/08/25 11:30) Regular Diet (04/08/25 Lunch) Temperature (04/08/25 11:16) Chlamydia/Gc Amplification (04/08/25 11:16) Ertapenem Sod Inj (Invanz) (04/08/25 14:00) Admit (04/08/25 13:00) * Hospitalist Consult (04/08/25 ) Plan discussed with: Patient Visit Coding OBGYN Date of Service: Apr 10, 2025 Billing Provider: GOLDIE LUNA DO [employer]EARCH TEACHER Common Visit Codes: [id number] INP/OBS CARE(HIGH) GOLDIE LUNA DO Apr 10, 2025 08:58
[2025-04-10 09:00] VITALS: BP 95/52; PULSE 84; RESP 17; TEMP 98; O2SAT 98
--- NOTE | 2025-04-10 10:52 | DVHPN2 ---
Changes from previous H/P or p: No Changes Objective Vitals Vital Signs Date Time Temp Pulse Resp B/P (MAP) Pulse Ox O2 Delivery O2 Flow Rate FiO2 04/10/25 08:00 Room Air* 0 21 04/10/25 05:00 98.5 90 17 116/79 (91) 98 98.5 Intake/Output Intake and Output 04/10/25 07:00 Intake Total 2660 ml Balance 2660 ml Intake Oral 1660 ml IV Total 1000 ml # Voids 10 Medications Current Medications Medications Dose Ordered Sig/Linda Route Start Time Stop Time Status Last Admin Dose Admin Acetaminophen/ Hydrocodone Bitart 2 tab Q6HPRN PRN PO 04/08/25 10:00 04/08/25 14:10 2 TAB Morphine Sulfate 4 mg Q3HPRN PRN IV 04/08/25 10:00 04/08/25 23:01 4 MG Lactated Ringer's 1,000 ml @ 125 mls/hr Q8H IV 04/08/25 11:30 04/10/25 02:52 125 MLS/HR Ertapenem 1 gm/ Sodium Chloride 50 ml @ 100 mls/hr DAILY IV 04/08/25 14:00 04/23/25 13:59 04/10/25 09:34 100 MLS/HR Laboratory Results Laboratory Tests 04/08/25 10:06 Urinalysis Test 04/08/25 10:33 Urine Color Dark yellow (Yellow) Urine Clarity Turbid (Clear) H Urine pH 6.0 (5.0-9.0) Urine Specific [place] 1.012 (1.001-1.035) Urine Protein 2+ (Negative) H Urine Ketones Negative (Negative) Urine Blood Negative /uL (Negative) Urine Nitrite 2+ (Negative) H Urine Bilirubin Negative (Negative) Urine Urobilinogen Normal mg/dL (Negative) Urine Leukocyte Esterase 3+ /uL (Negative) Urine RBC 12 /hpf (0 - 4) Urine Microscopic WBC 237 /HPF (0-5) H Urine Squamous Epithelial Cells Mod /hpf (<5) Urine Bacteria Many /hpf (None Seen) H Urine Mucus Few (None Seen) Urine Glucose Normal mg/dL (Normal) Microbiology Microbiology Date/Time Source Procedure Growth Status 04/08/25 09:50 Voided Urine Urine Culture - Preliminary Resulted Labs and/or images reviewed: Labs reviewed by me, Image(s) reviewed by me Assessment/Plan Assessment/Plan -22 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
[2025-04-10 11:46] LABS: Hematocrit 34.0 % (36.0-46.0); Hemoglobin 11.2 g/dL (12.2-16.2); Mean Corpuscular Hemoglobin 27.6 pg (28.0-32.0); Mean Corpuscular Volume 84.0 fL (80.0-100.0); Nucleated Red Blood Cells % 0.1 %
[2025-04-10 13:00] VITALS: BP 119/74; PULSE 99; RESP 17; TEMP 98; O2SAT 95
[2025-04-10] MEDS ORDERED: AMPI500C9 PO (15:25)
--- NOTE | 2025-04-10 15:26 | MEDREC ---
[facility] ASP Intervention Section I [facility] Intervention: Deescalate AB based on CS (PLEASE CONSIDER DE-ESCALATION BASED ON CULTURE RESULTS AND SUSCEPTIBILITIES ) PHILIP SO PHARMACIST Apr 10, 2025 15:26
--- NOTE | 2025-04-10 15:27 | DVHDS2 ---
Physician Discharge Progress N Final Diagnosis: IUP 22 wk, acute Pyelonephritis Operations or Procedures: Operations or Procedures OB ultrasound Renal ultrasound IV antibiotics, Rocephin 1gm IV and INVANZ daily x 2 days Commentary: Commentary E.Coli UTI, sensitive to Ampicillin Condition on Discharge: Stable Disposition: Home Discharge Instructions: Diet: Regular Activity: Light activity Follow Up/Referral: [address] BRANDON Medications: Ampicillin 500mg PO QID x 10 days Follow Up Care: Discharge Statement: "Patient was advised to return to the ER or call 911 if any headaches, dizziness, shortness of breath, chest pain, abdominal pain, bleeding, fevers, or worsening of medical condition. Patient was counseled about treatment plan, medications, possible side effects, patientverbalized understanding. All questions were answered to the best of my ability. This discharge took greater then 30 minutes in planning, reviewing documentation, counseling the patient, and discussing with other team members." Visit Coding OBGYN Date of Service: Apr 10, 2025 Billing Provider: GOLDIE LUNA DO FLIGHT MECHANIC Common Visit Codes: [id number] DISCH DAY <30MIN GOLDIE LUNA DO Apr 10, 2025 15:27
[2025-04-10 15:56] VITALS: TEMP 36.7
[2025-04-12 08:07] LABS: Chlamydia Trachomatis, NAA Negative (Negative); Neisseria gonorrhoeae, NAA Negative (Negative)
== END 2025-04-10 17:00 | disposition home or self-care (01) | DRG 566 ==
LOC: ER 08:30 → LDRP 08:52 → UNDOADMOB 08:52 → LDRP 09:16 → OBSVTOIN 11:16 → INTOOBSV 11:16 → LDRP 11:16 → OVERFLOW 13:19 → EAST 16:48
PROVIDERS: ADMIT Obstetrics & Gynecology; ATTEND Obstetrics & Gynecology
DX: O98.812 Other maternal infectious and parasitic diseases complicating pregnancy, second trimester (principal); A41.9 Sepsis, unspecified organism; N13.6 Pyonephrosis; O23.02 Infections of kidney in pregnancy, second trimester; B96.20 Unspecified Escherichia coli [E. coli] as the cause of diseases classified elsewhere; O99.322 Drug use complicating pregnancy, second trimester; Z3A.22 22 weeks gestation of pregnancy; O99.332 Smoking (tobacco) complicating pregnancy, second trimester; F17.200 Nicotine dependence, unspecified, uncomplicated; F15.10 Other stimulant abuse, uncomplicated
CPT/HCPCS: 36415; 59025; 76775; 76805; 80053; 80307; 81001; 81002; 85025; 86703; 86762; 86780; 86803; 86850; 86900; 86901; 87086; 87088; 87186; 87340; 94760; 96360; 96361; 96365; G0378; J1335